=== PATIENT | male | born 1960 | race Caucasian/White ===

== ENCOUNTER 2020-09-28 15:15 | Emergency (ER) | payer BC ==
[2020-09-28] MEDS ORDERED: ONDANSETRON HCL INJ/PF 4 MG/2 ML SDV IV ONE (15:40)
[2020-09-28] MEDS ORDERED: HYDROMORPHONE HCL INJ/PF 2 MG/ML AMPULE IV ONE ×3 (15:40→17:30)
[2020-09-28] MEDS ORDERED: NORMAL SALINE 500 ML IV ONE (15:41)
--- NOTE | 2020-09-28 15:49 | ER Document Report ---
ED General - General Chief Complaint: Flank Pain Stated Complaint: LEFT FLANK PAIN Time Seen by Provider: 09/28/20 15:33 - HPI Notes: Chief complaint: Left flank pain, nausea and vomiting History of present illness: 59-year-old male with no known prior history of renal stones had sudden onset of severe left flank pain several hours ago accompanied by multiple episodes of vomiting. States that this is "some of the worst pain I have ever had my life." EMS gave a total of 150 mcg of fentanyl with little relief of his discomfort. He denies any gross hematuria. He denies fever chills. Pain radiates to his left lower quadrant. 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 He has had multiple stents in the past. He also apparently had an ablation for atrial fibrillation. Patient denies any known history of aneurysm. Patient is about 6 weeks status post right knee replacement which was done at [place]. Past Medical History - General Information source: Patient - Social History Smoking Status: Never Smoker Frequency of alcohol use: Social Drug Abuse: None Lives with: Family Family History: Reviewed & Not Pertinent - Past Medical History Cardiac Medical History: Reports: Hx Atrial Fibrillation, Hx Coronary Artery Disease Endocrine Medical History: Denies: Hx Diabetes Mellitus Type 1, Hx Diabetes Mellitus Type 2 Musculoskeletal Medical History: Reports Hx Arthritis Past Surgical History: Reports: Hx Cardiac Surgery - Previous ablation procedure. Multiple stents., Hx Orthopedic Surgery - Right knee replacement performed at [place] Review of Systems - Review of Systems Notes: Constitutional: Negative for fever. HENT: Negative for sore throat. Eyes: Negative for visual changes. Cardiovascular: Negative for chest pain. Respiratory: Negative for shortness of breath. Gastrointestinal: As per HPI. Genitourinary: As per HPI. Musculoskeletal: As per HPI. Skin: Negative for rash. Neurological: Negative for headaches, weakness or numbness. 10 point ROS negative except as marked above and in HPI. Physical Exam - Vital signs Vitals: Temp 97.6 F 09/28/20 15:16 - Notes Notes: GENERAL: Male patient approximately stated age who appears uncomfortable and restless holding left flank area. SKIN: Pale and mildly diaphoretic. Good turgor no rashes. HEAD: Normocephalic atraumatic. EYES: PERRLA. EOMI. Conjunctivae and sclerae clear. EARS: CANALS AND TMS CLEAR. NOSE: CLEAR. MOUTH: Moist mucosa. Good dentition. No stridor or edema. No drooling. NECK: Supple. No masses or thyromegaly. No adenopathy. Carotids 2+ without bruits. No JVD. BACK: Symmetrical without tenderness. CHEST: Respirations unlabored. Breath sounds clear and symmetrical. HEART: Regular rhythm. No murmur gallop or rub. ABDOMEN: Mildly obese. Soft nontender without masses, organomegaly or rebound. Bowel sounds normally active. No bruits. GENITALIA: Deferred. EXTREMITIES: Healing surgical scar anterior aspect right knee. 1+ edema of right lower leg. No calf tenderness. Cap refill less than 1.5 seconds. Dorsalis pedis and posterior tibial pulses 3+ and symmetrical. NEUROLOGICAL: GCS 15. Alert and oriented x3. Fluent speech. Cranial nerves II through XII intact. Sensorimotor and cerebellar normal. Normal tone. PSYCHIATRIC: Anxious affect. Course - Re-evaluation Re-evalutation: 09/28/20 15:52 Primary differential diagnosis would be renal colic and leaking AAA. Patient is going to receive additional IV narcotic analgesics and IV normal saline. Stat noncontrast CT abdomen pelvis requested. 09/28/20 16:[address] abdomen pelvis has been reviewed with the radiologist and there is no evidence of stone. Patient appears to have a large hematoma in the area of the left kidney. There is no reported trauma. We do note that this man is on Xarelto and Plavix. He is currently hemodynamically stable. His hemoglobin is 12.7 g. He still having severe left flank pain. I have given him additional dose of IV Dilaudid. We recommended transfer to urology service as we have no urologist available locally. He is requested that we send him to [facility]. I have paged the transport center and forwarded his imaging to their facility. I am waiting for the on-call urologist to return the page at this time. Patient is to remain n.p.o. 09/28/20 17:33 We are still awaiting return call from the on-call paper mill supervisor at [facility], Dr. Mare Cameron. I spoke with transfer center and they state that he is currently preoccupied in surgery and will call us as soon as possible. - Vital Signs Vital signs: Temp Pulse Resp BP Pulse Ox 97.6 F 84 15 153/82 H 96 09/28/20 15:41 09/28/20 15:41 09/28/20 17:36 09/28/20 15:41 09/28/20 17:36 - Laboratory Result Diagrams: 09/28/20 15:53 09/28/20 15:53 Laboratory results interpreted by me: 09/28/20 09/28/20 09/28/20 15:53 15:53 15:53 WBC 14.1 H Hgb 12.7 L MCV 79 L MCH 25.9 L RDW 14.4 H Lymph % (Auto) 7.3 L Absolute Neuts (auto) 12.4 H Seg Neutrophils % 87.8 H PT 26.6 H APTT 56.4 H Potassium 3.3 L Chloride 93 L BUN 29 H Creatinine 1.51 H Est GFR ( Amer) 57 L Est GFR (MDRD) Non-Af 47 L Glucose 225 H - Diagnostic Test Radiology reviewed: Image reviewed, Reports reviewed Radiology results interpreted by me: Abdomen/Pelvis CT 09/28/20 15:41 IMPRESSION: Examination limited in the absence of intravenous contrast. The overall enlarged, heterogeneous appearance of the left kidney is most consistent with posttraumatic change. An underlying hemorrhagic neoplasm is not excluded. No discrete findings of urolithiasis or obstructive uropathy. Fulminant pyelonephritis is not entirely excluded. Discharge - Discharge Clinical Impression: Left renal hematoma Condition: Serious Disposition: [facility]
[2020-09-28 16:07] LABS: ABSOLUTE MONOCYTES (AUTO) 0.6 10^3/uL (0.1-1.4); ABSOLUTE NEUT (AUTO) 12.4 10^3/uL (1.7-8.2); BASOPHILS % (AUTO) 0.2 % (0-2); EOSINOPHILS % (AUTO) 0.1 % (0-6); HEMATOCRIT 38.9 % (37.9-51.0); HEMOGLOBIN 12.7 g/dL (13.5-17.0); LYMPHOCYTES % (AUTO) 7.3 % (13-45); MEAN CORPUSCULAR HEMOGLOBIN 25.9 pg (27.0-33.4); MEAN CORPUSCULAR HGB CONC 32.7 g/dL (32.0-36.0); MEAN CORPUSCULAR VOLUME 79 fl (80-97); MONOCYTES % (AUTO) 4.6 % (3-13); PLATELET COUNT 374 10^3/uL (150-450); RED BLOOD COUNT 4.91 10^6/uL (4.35-5.55); RED CELL DISTRIBUTION WIDTH 14.4 % (11.5-14.0); SEGMENTED NEUTROPHILS % (AUTO) 87.8 % (42-78); TOTAL CELLS COUNTED % (AUTO) 100 %; WHITE BLOOD COUNT 14.1 10^3/uL (4.0-10.5)
--- NOTE | 2020-09-28 16:28 | RADIOLOGY REPORT (SQ) ---
EXAM DESCRIPTION: CT ABD/PELVIS NO ORAL OR IV IMAGES COMPLETED DATE/TIME: 09/28/2020 4:10 pm REASON FOR STUDY: left flank pain COMPARISON: None. TECHNIQUE: CT scan of the abdomen and pelvis performed without intravenous or oral contrast. Images reviewed with lung, soft tissue, and bone windows. Reconstructed coronal and sagittal MPR images revi ewed. All images stored on PACS. All CT scanners at this facility use dose modulation, iterative reconstruction, and/or weight based d osing when appropriate to reduce radiation dose to as low as reasonably achievable (ALARA). [facility]: Dose Right [facility]: CareDose [facility]: Dose Right [facility]: Teradose 4D [facility]: Smart Rapt RADIATION DOSE: mGy. LIMITATIONS: None. FINDINGS: LOWER CHEST: Severe coronary artery disease. Bilateral gynecomastia. NON-CONTRASTED LIVER, SPLEEN, ADRENALS: Evaluation limited by lack of IV contrast. No identified sign ificant masses. PANCREAS: No masses. No peripancreatic inflammatory changes. GALLBLADDER: No identified stones by CT criteria. No inflammatory changes to suggest cholecystitis. RIGHT KIDNEY AND URETER: No suspicious masses. Assessment limited by lack of IV contrast. No signif icant calcifications. No hydronephrosis or hydroureter. LEFT KIDNEY AND URETER: Diffusely enlarged and heterogeneous with significant perinephric fat strandi ng. No significant calcifications. The ureter is largely obscured by the perinephric fat strandin g. No abnormal calcifications are seen along the expected course of the ureter. AORTA AND RETROPERITONEUM: No aneurysm. No retroperitoneal masses or adenopathy. BOWEL AND PERITONEAL CAVITY: No obvious masses or inflammatory changes. No free fluid. APPENDIX: Normal. PELVIS, BLADDER, AND ABDOMINAL WALL:No abnormal masses. No free fluid. Bladder normal. BONES: No significant findings. OTHER: No other significant finding. IMPRESSION: Examination limited in the absence of intravenous contrast. The overall enlarged, heter ogeneous appearance of the left kidney is most consistent with posttraumatic change. An underlying h emorrhagic neoplasm is not excluded. No discrete findings of urolithiasis or obstructive uropathy. Fulminant pyelonephritis is not entirely excluded. COMMENT: Quality ID # [id number]: Final reports with documentation of one or more dose reduction techniques (e.g., Automated exposure control, adjustment of the mA and/or kV according to patient size, use of iterative reconstruction technique) TECHNICAL DOCUMENTATION: JOB ID: [id number] 2010 [employer]- All Rights Reserved Reading location - IP/workstation name: [email or web address]
[2020-09-28 16:30] LABS: ALBUMIN 4.3 g/dL (3.5-5.0); ALKALINE PHOSPHATASE 100 U/L (38-126); ANION GAP 17 (5-19); ASPARTATE AMINO TRANSFERASE 24 U/L (17-59); BILIRUBIN,DIRECT 0.1 mg/dL (0.0-0.4); BILIRUBIN,TOTAL 0.5 mg/dL (0.2-1.3); BLOOD UREA NITROGEN 29 mg/dL (7-20); CALCIUM 9.9 mg/dL (8.4-10.2); CARBON DIOXIDE 28 mmol/L (22-30); CHLORIDE 93 mmol/L (98-107); GLUCOSE 225 mg/dL (75-110); POTASSIUM 3.3 mmol/L (3.6-5.0); TOTAL PROTEIN 7.1 g/dL (6.3-8.2)
[2020-09-28 17:18] LABS: INTERNATIONAL RATION (INR) 2.46; PROTHROMBIN TIME 26.6 SEC (11.4-15.4)
[2020-09-28 17:19] LABS: PARTIAL THROMBOPLASTIN TIME 56.4 SEC (23.5-35.8)
[2020-09-28 18:30] VITALS: BP 127/87
== END 2020-09-28 18:42 | disposition short-term general hospital (02) ==
LOC: ER 15:15
DX: N28.89 Other specified disorders of kidney and ureter (principal); R10.9 Unspecified abdominal pain; I48.91 Unspecified atrial fibrillation; I25.10 Atherosclerotic heart disease of native coronary artery without angina pectoris; Z79.01 Long term (current) use of anticoagulants; Z87.442 Personal history of urinary calculi; Z96.651 Presence of right artificial knee joint
CPT/HCPCS: 96376; 99285; 96361; 96374; 96375; 86900; 86901; 36415; 86850; 85025; 85610; 85730; 80053; 74176; J1170; J2405; J7040